=== PATIENT | female | born 1980 | race Caucasian/White ===

== ENCOUNTER 2017-01-24 19:32 | Emergency (ER) | payer OTHER ==
[~2017-01-24] VITALS: Ht 175.3 cm; Wt 109.1 kg
[~2017-01-24 19:32] MED LIST: PREG300C PO; PROM25TA14 PO
[2017-01-24 19:40] VITALS: BP 144/73; PULSE 66; RESP 18; O2SAT 99
== END 2017-01-24 21:01 | disposition left against medical advice (07) ==
LOC: SED 19:32
DX: R21 Rash and other nonspecific skin eruption (principal); Z53.21 Procedure and treatment not carried out due to patient leaving prior to being seen by health care provider

== ENCOUNTER 2017-02-15 18:38 | Emergency (ER) | payer OTHER ==
[~2017-02-15] VITALS: Ht 172.7 cm; Wt 109.1 kg
[2017-02-15 19:04] VITALS: BP 137/83; PULSE 74; RESP 18; O2SAT 100
--- NOTE | 2017-02-15 21:26 | ED.REPORT ---
HPI-Abd Pain F Under 40 Date of Service Feb 15, 2017 ED Provider: Oscar Caro MD The pt is a 37 y/o female with a hx of anxiety, depression, and fibromyalgia who presents to the ED complaining of worsening epigastric pain that radiates up to her sternum, onset 3 days ago. She experiences mild relief when laying down. Associated sx include nausea, feeling of fullness in the epigastric region , diarrhea, constant belching, and night sweats. She experienced mild relief after an episode of diarrhea yesterday. She denies chest pain, cough, lower extremity edema, melena, hematochezia, dark urine, white stool, and rash. She recently lost some weight unintentionally. Her last menstrual period was two weeks ago. Nursing Notes Stated Complaint: STOMACH PAIN,NAUSEA Chief Complaint: Female Abdominal Pain Nursing Notes Reviewed: Yes Allergies: Coded Allergies: amoxicillin (Verified Allergy, Intermediate, Nausea,Vomiting, 02/15/17) amitriptyline (Verified Allergy, Unknown, 02/15/17) Scheduled Omeprazole (Omeprazole) 20 Mg Tablet.dr 20 MG PO BID Pregabalin (Lyrica) 300 Mg Capsule 300 MG PO BID Scheduled PRN Promethazine (Promethazine) 25 Mg Tablet 25 MG PO Q6H PRN PRN For Nausea General Time Seen by MD: 21:03 Chief Complaint Abdominal pain Hx Obtained From: Patient Arrived By: Walk-in Sudden in Onset?: Yes Onset Occurred: 3 days ago Symptom Duration: Since onset Location: : Epigastric Quality: Painful Severity: Current: Moderate Severity: Maximum: Moderate Past Medical History Past Medical History Concussion Anxiety Childhood asthma Fibromyalgia Depression Reports: Diabetes mellitus Reports: Depression, Migraines Past Surgical History Knee Surgery Abdominal skin abscess drainage Umbilical hernia repair Reports: Family History Reviewed, not relevant Mother with epilepsy Smoking History Never Smoker Social History Alcohol Use: Denies alcohol use Drug Use: THC, Xanax Other Social History: Good social support, Frequent ED visitor, , Local resident Occupation lives with and child, no work or school Ambulatory Status Independent Review of Systems Reports: fulness in the epigastric region Reports: belching Reports: night sweats Denies: dark urine Denies: white stool Respiratory: Denies: Non-productive cough Cardiovascular: Denies: Chest pain, Edema GI: Reports: Abdominal pain, Diarrhea, Nausea, Denies: Hematochezia, Melena Complete sys rev & neg: except as marked. Skin: Denies Rash Physical Exam Initial Vital Signs Vital Signs (First) Date Time Temp Pulse Resp B/P Pulse Ox O2 Delivery O2 Flow Rate FiO2 02/15/17 19:04 36.7 74 18 137/83 100 Room Air Initial VS: Reviewed Head / Eyes: Atraumatic, Normocephalic Neck: Supple, Non-tender, Full range of motion Extremities: Vascular intact, Neuro intact, No swelling, No tenderness Skin: Warm, Dry, No cyanosis Neurologic: Alert, Oriented, Nonfocal General/Constitutional: Awake, Alert, No acute distress, Cooperative Appearance / Presentation: Positive: Obese Respiratory / Chest: Atraumatic, Breath sounds NL, Breath sounds = bilat, No respiratory distress, No rales, No rhonchi, No wheezing Cardiovascular: Heart rate NL, Regular rhythm, Heart sounds NL, No gallop, No murmurs, No rubs Abdomen: Atraumatic, Soft, No guarding, No rebound, BS normoactive, No distention Tenderness/Guarding/Rebound: Positive: Tender epigastric Back: Atraumatic, Full range of motion, Painless range of motion, Non-tender Interpretation & Diagnostics Lab Results Interpretation Result Diagram: 02/15/17215202/15/17 2153 Test 02/15/17 21:53 02/15/17 22:51 White Blood Count 12.5th/mm3 (3.8-10.1) Red Blood Count 4.59mil/mm3 (3.90-5.20) Hemoglobin 13.2g/dL (12.0-15.6) Hematocrit 38.3% (35.0-46.0) Mean Corpuscular Volume 83.4fL (81-100) Mean Corpuscular Hemoglobin 28.8pg (27.0-35.0) Mean Corpuscular Hemoglobin Concent 34.5% (32.0-37.0) Red Cell Distribution Width 14.4% (12.3-15.4) Platelet Count 342bil/L (150-400) Neutrophils (%) (Auto) 68.2% (40-74) Lymphocytes (%) (Auto) 23.2% (14-46) Monocytes (%) (Auto) 7.6% (4-12) Eosinophils (%) (Auto) 0.5% (0-5) Basophils (%) (Auto) 0.3% (0-3) Sodium Level 137mEq/L (134-144) Potassium Level 3.4mEq/L (3.5-5.2) Chloride Level 101mEq/L (97-108) Carbon Dioxide Level 19mmol/L (18-29) Blood Urea Nitrogen 8mg/dL (6-20) Creatinine 0.62mg/dL (0.57-1.00) Estimat Glomerular Filtration Rate 156mL/min (>59) Glucose Level 102mg/dL (60-99) Calcium Level 9.3mg/dL (8.5-10.1) Total Bilirubin 0.8mg/dL (0.0-1.2) Aspartate Amino Transf (AST/SGOT) 13U/L (0-50) Alanine Aminotransferase (ALT/SGPT) 8U/L (0-32) Alkaline Phosphatase 81U/L (25-150) Total Protein 7.5g/dL (6.4-8.4) Albumin 4.0g/dL (3.4-5.0) Lipase 20U/L (13-60) Hold Betancourt Top Tube Received (Received) Urine Color Yellow (YELLOW) Urine Appearance Clear (CLEAR,HAZY) Urine pH 6.0 (5.0-8.0) Urine Specific Jerome >1.030 (1.003-1.035) Urine Protein Tracemg/dL (NEG,TRACE) Urine Glucose (UA) Negativemg/dL (NEGATIVE) Urine Ketones 15mg/dL (NEGATIVE) Urine Occult Blood Negative (NEGATIVE) Urine Nitrite Negative (NEGATIVE) Urine Bilirubin Negative (NEGATIVE) Urine Urobilinogen Normalmg/dL (NORMAL) Urine Leukocyte Esterase Negative (NEGATIVE) Urine RBC 0-2/hpf (0-2) Urine WBC 0-5/hpf (0-5) Urine Epithelial Cells Many/hpf (NONE-MOD) Urine Crystals None seen (NONE SEEN) Urine Bacteria Few/hpf (NONE-FEW) Urine Hyaline Casts None/lpf (NONE) Urine Granular Casts None seen (NONE SEEN) Urine Waxy Casts None seen (NONE SEEN) Urine Red Blood Cell Casts None seen (NONE SEEN) Urine White Blood Cell Casts None seen (NONE SEEN) Urine Mucus None seen (None Seen) Urine Trichomonas None seen (NONE SEEN) Urine Yeast None (NONE SEEN) Urinalysis Comment None Urine Culture Reflexed Not indicated ECG Interpretation ECG Interpretation: Normal sinus rhythm. Rate 55. Left ventricular hypertrophy. Time: 21:47 Interpreted by: ED physician Re-Eval/Medical Decision Med Decision/Clinical Course Med Decision/Clinical Course: 37-year-old presents with epigastric pain and early satiety. LFTs are unremarkable. No right upper quadrant tenderness. This appears to be gastritis and potentially early ulcer. Begun with omeprazole twice a day. Improved here with Maalox. Discharged in stable condition. Source of Hx: Old records Re-Evaluation/Progress : Time of Eval: 23:39 Re-Evaluation/Progress Note: Rechecked pt. Discussed lab results, diagnosis and plan to discharge. Pt understands and agrees with the plan. F/U instruction and RTER warning given. All questions addressed. Counseled Regarding: Diagnosis, Need for follow-up, When/why to return to ED Discharge & Departure Primary Impression: Gastritis Gastritis type: unspecified gastritis Chronicity: unspecified Gastritis bleeding: presence of bleeding unspecified Qualified Code: K29.70 - Gastritis , unspecified, without bleeding Additional Impression: Abdominal pain Disposition: Home Discharge Condition All VS Reviewed: Yes Condition: Improved Patient Instructions: Gastritis (ED) Additional Instructions: Begin omeprazole twice daily for ten days and then continue for eight weeks total. You can use Maalox intermittently if needed. You can also use Pepcid ( famotidine generic) if needed. Follow-up with your doctor in the office. Call Saturday for follow-up sometime in the next ten days or so Return if any immediate issues. Return especially if there is any bloody or black diarrhea, or other new symptoms of concern. Referrals: Rupert Villegas MD (PCP) Scribe Attestation Portions of this note were transcribed by Milana Gama. I,, personally performed the history,physical exam and medical decision-making;I reviewed and confirmed the accuracy of the information in the transcribed note. Signed by Monique Ivory. 02/15/17 copies to: Rupert Villegas MD, Christopher W MD Feb 15, 2017 21:26 Milana Gama Feb 15, 2017 21:37 MARY MCCALLUM Feb 16, 2017 00:29
[2017-02-15] MEDS ORDERED: Pantoprazole 40 mg ER24 Tablet PO ONE (21:40)
[2017-02-15] MEDS ORDERED: Alum-Mag Hydrox-Simeth 30 mL Suspension PO ONE (21:40)
[2017-02-15 22:04] LABS: BASOPHILS % (AUTO) 0.3 % (0-3); EOSINOPHILS % (AUTO) 0.5 % (0-5); MONOCYTES % (AUTO) 7.6 % (4-12); Mean Corpuscular Hemoglobin 28.8 pg (27.0-35.0); Mean Corpuscular Volume 83.4 fL (81-100); NEUTROPHILS % (AUTO) 68.2 % (40-74); Platelet Count 342 bil/L (150-400)
[2017-02-15 23:05] LABS: APPEARANCE,URINE CLEAR (CLEAR,HAZY); COLOR,URINE YELLOW (YELLOW); OCCULT BLOOD,URINE NEGATIVE (NEGATIVE); UROBILINOGEN,URINE NORMAL (NORMAL)
[2017-02-15] MEDS ORDERED: OMEP20TA86 PO (23:17)
[2017-02-15 23:53] VITALS: BP 135/80; PULSE 75; RESP 18; O2SAT 100
== END 2017-02-15 23:55 | disposition home or self-care (01) ==
LOC: SED 18:38
DX: K29.70 Gastritis, unspecified, without bleeding (principal); F41.8 Other specified anxiety disorders; M79.7 Fibromyalgia; E11.9 Type 2 diabetes mellitus without complications; G43.909 Migraine, unspecified, not intractable, without status migrainosus; Z98.890 Other specified postprocedural states; Z88.1 Allergy status to other antibiotic agents; Z88.8 Allergy status to other drugs, medicaments and biological substances